=== PATIENT | female | born 1990 | race Caucasian/White ===

== ENCOUNTER 2016-12-22 13:50 | Emergency (ER) | payer MEDICAID ==
[~2016-12-22] VITALS: Ht 165.1 cm; Wt 69.9 kg
[~2016-12-22 13:50] MED LIST: AMOXIL500 MG PO; CIPRO 500MG TA500 MG PO; FLEXERIL10 MG PO; GENTAMICIN3 MG/GM OP; IBU-8800 MG PO; KEFLEX 500MG.500 MG PO; LORTAB 5/500 501 TAB PO; MULTI VITAMINS1 TA1 PO; NOMEDS; PHENERGAN 25MG.25 M1 PO; TRAMADOL 50MG T50 MG PO; VENTOLIN H0.09 MG/AC IH; VICODIN 5/500 T1 TAB PO; VOLTAREN75 MG PO
--- NOTE | 2016-12-22 14:14 | Emergency Room Report ---
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 N Clinical Suspician of Infection? N Mental Status: 1 - Regular (Normal Baseline) Sepsis Risk:Low Sepsis Risk Have you (or family members/close friends) recently traveled outside the [place]? N If Yes, where/when: Have you had exposure to infectious disease within the past month? TB? Other? Specify: Source patient, RN notes reviewed Exam Limitations no limitations Comment Pt comes to the ED stating she started spotting vaginally last night and just found out a couple of days ago that her test is positive also. She is a whose LMP was around November. She has been sexually active the last couple of days also. Her blood type is O+ Cardiac Chest Pain Chest pain indicative of cardiac No ALLERGIES Coded Allergies: No Known Allergies (12/22/16) Home Medications Reported Medications MULTIVITAMIN (One Daily Multivitamin) 1 TAB PO DAILY History Medical History General CAD? No Angina: No NM: No Hypertension? No Hyperlipidemia? No CHF? No DVT? No PE? No COPD? No Asthma? Yes Anemia? No GERD? No Gastric ulcers? No GI Bleed? No Hernia? No Thyroid Problems? No Hypothyroidism? No CVA? No Seizures? No Diabetes? No Insulin Dependent: No Insulin Pump: No Home FSBS? No Renal Insuffiency? No End Stage Renal Disease? No UTI? No Stones? No BPH? No GB Disease: No Nephritic Syndrome? No Asplenia? No Hepatitis? No Sickle Cell Disease? No Arthritis? No Migraines? No Cataracts? No Glaucoma? No MRSA? No HIV? No TB? No Anxiety? No Depression? No Cancer? No More? No Immunization Hx Ped.Immunizations UTD Yes DT/Tetanus 12/18/09 Surgical Hx Previous Surgery?Y Tonsils WISDOM TEETH [employer]ER Hx LMP 1 Month Ago Social History Smoking Hx Smoker: Current Every Day Smoker Tobacco: Yes Type Cigarettes Packs/day < 1 Pack Alcohol Alcohol: No Review of Systems All Other Systems Reviewed and Negative Constitutional see HPI Genitourinary see HPI. Physical Exam Vital Signs Vital Signs Date Time Temp Pulse Resp B/P Pulse O2 O2 Flow FiO2 Ox Delivery Rate 12/22 1354 98.3 102 18 155/107 98 General Appearance normal appearance, WD/WN, no apparent distress Respiratory Status No: respiratory distress. Lung Sounds bilateral: normal breath sounds. 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 No Results/Orders Laboratory Tests 12/22/16 1515: Beta HCG, Quant 247.8 Orders Procedure Date/time Status URINALYSIS/COMPLETE 12/22 1413 Active BETA-HCG, QUANT 12/22 1413 Complete US TRANSVAGINAL PREG 12/22 1402 Active Departure Departure Time of Disposition 1547 Disposition DC Home or Self Care(routine) Clinical Impression Primary Impression: Threatened Condition STABLE Referrals Jeb URIBE,Smith Torres Patient Instructions DI for Threatened , Threatened Additional Instructions Bedrest, avoid sexual activity, and followup with OBGYN in 2 days to repeat Beta HCH. If any tissue is passed collect and bring to the ED or to OBGYN doctor for evaluation Discharge Counseling Counseled pt/family regarding diagnosis, test results, home care, follow up needs ED Critical Care Critical Care No If Critical Care minutes are documented, the time involved in the performance of seperately reportable procedures was not counted toward critical care time documented. I directly delivered medical care to this critically ill and/or injured patient. Timely evaluation and treatment was necessary to address the significant organ system(s) dysfunction present in this patient. at 1544
--- NOTE | 2016-12-22 14:14 | Emergency Room Report ---
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 N Clinical Suspician of Infection? N Mental Status: 1 - Regular (Normal Baseline) Sepsis Risk:Low Sepsis Risk Have you (or family members/close friends) recently traveled outside the [place]? N If Yes, where/when: Have you had exposure to infectious disease within the past month? TB? Other? Specify: Source patient, RN notes reviewed Exam Limitations no limitations Comment Pt comes to the ED stating she started spotting vaginally last night and just found out a couple of days ago that her test is positive also. She is a whose LMP was around November. She has been sexually active the last couple of days also. Her blood type is O+ Cardiac Chest Pain Chest pain indicative of cardiac No ALLERGIES Coded Allergies: No Known Allergies (12/22/16) Home Medications Reported Medications MULTIVITAMIN (One Daily Multivitamin) 1 TAB PO DAILY History Medical History General CAD? No Angina: No OK: No Hypertension? No Hyperlipidemia? No CHF? No DVT? No PE? No COPD? No Asthma? Yes Anemia? No GERD? No Gastric ulcers? No GI Bleed? No Hernia? No Thyroid Problems? No Hypothyroidism? No CVA? No Seizures? No Diabetes? No Insulin Dependent: No Insulin Pump: No Home FSBS? No Renal Insuffiency? No End Stage Renal Disease? No UTI? No Stones? No BPH? No GB Disease: No Nephritic Syndrome? No Asplenia? No Hepatitis? No Sickle Cell Disease? No Arthritis? No Migraines? No Cataracts? No Glaucoma? No MRSA? No HIV? No TB? No Anxiety? No Depression? No Cancer? No More? No Immunization Hx Ped.Immunizations UTD Yes DT/Tetanus 12/18/09 Surgical Hx Previous Surgery?Y Tonsils WISDOM TEETH [employer] Hx LMP 1 Month Ago Social History Smoking Hx Smoker: Current Every Day Smoker Tobacco: Yes Type Cigarettes Packs/day < 1 Pack Alcohol Alcohol: No Review of Systems All Other Systems Reviewed and Negative Constitutional see HPI Genitourinary see HPI. Physical Exam Vital Signs Vital Signs Date Time Temp Pulse Resp B/P Pulse O2 O2 Flow FiO2 Ox Delivery Rate 12/22 1354 98.3 102 18 155/107 98 General Appearance normal appearance, WD/WN, no apparent distress Respiratory Status No: respiratory distress. Lung Sounds bilateral: normal breath sounds. 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 No Results/Orders Laboratory Tests 12/22/16 1515: Beta HCG, Quant 247.8 Orders Procedure Date/time Status URINALYSIS/COMPLETE 12/22 1413 Active BETA-HCG, QUANT 12/22 1413 Complete US TRANSVAGINAL PREG 12/22 1402 Active Departure Departure Time of Disposition 1547 Disposition DC Home or Self Care(routine) Clinical Impression Primary Impression: Threatened Condition STABLE Referrals Jeb URIBE,Smith Torres Patient Instructions DI for Threatened , Threatened Additional Instructions Bedrest, avoid sexual activity, and followup with OBGYN in 2 days to repeat Beta HCH. If any tissue is passed collect and bring to the ED or to OBGYN doctor for evaluation Discharge Counseling Counseled pt/family regarding diagnosis, test results, home care, follow up needs ED Critical Care Critical Care No If Critical Care minutes are documented, the time involved in the performance of seperately reportable procedures was not counted toward critical care time documented. I directly delivered medical care to this critically ill and/or injured patient. Timely evaluation and treatment was necessary to address the significant organ system(s) dysfunction present in this patient. at 1542
[2016-12-22 16:11] VITALS: BP 145/85
--- NOTE | 2016-12-23 06:56 | RADIOLOGY REPORT PS360 ---
US TRANSVAGINAL PREG HISTORY: vaginal spotting with + test ORDERING PHYSICIAN: Cliff Mendez MD PATIENT AGE: 26 years COMPARISON: None available. FINDINGS: Endovaginal exam performed. The uterus has an unremarkable appearance at 6 x 3 cm. Combined image thickness is 7 mm. No intrauterine gestational sac apparent. Small nabothian cyst noted. Left ovary is 2.6 x 1.57 m and contain small follicles. Right ovary is 2.8 x 1.5 cm m and contain small follicles. Bilateral ovarian blood flow is noted. No cul-de-sac fluid. IMPRESSION: 1. Unremarkable pelvic ultrasound. 2. Patient reports positive home test. No intrauterine gestational sac is evident. If there is indeed a positive test then, considerations include area early gestation versus ectopic . Correlation with clinical parameters recommended. Consider follow-up beta hCG and pelvic ultrasound if clinically warranted
== END 2016-12-22 16:07 ==
LOC: ER 13:50
DX: O20.0 Threatened abortion (principal)